=== PATIENT | female | born 1980 | race Caucasian/White ===

== ENCOUNTER 2018-10-28 11:59 | Emergency (ER) | payer OTHER, MEDICAID, SELFPAY ==
[2018-10-28 12:03] VITALS: BP 146/80; PULSE 64; RESP 14; TEMP 36.7; O2SAT 100; BMI 22.4
--- NOTE | 2018-10-28 14:42 | ED_ITS ---
HPI - Back Pain/Injury <Shaina Shanks PA-C - Last Filed: 10/28/18 21:38> General Chief Complaint: Back Pain/Injury Stated Complaint: flu symptoms. Time Seen by Provider: 10/28/18 14:14 Source: patient Mode of arrival: ambulatory Limitations: no limitations History of Present Illness HPI Narrative: This 37-year-old female comes in due to increased back and arthritis pain after being out of her gabapentin since yesterday. 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 She states that she had been using a combination of 3-400 mg + 100 mg tablets. She was finding with being more active that 400 mg was not sufficiently effective, and did much better with taking 600 mg per dose. She states that her PCP is in [place], and she is due for a visit but not able to get in the right away to get refills. She denies any new injury or acute changes such as new paresthesia or weakness in her extremities or urinary or bowel changes. She states that her menses also restarted after 10 months and she thinks this contributes somewhat to her pain due to cramps, but she does not have any new urinary symptoms or other complaints today, just hoping to review medication and get a refill until she can see her PCP. She states that she is doing well, maintaining a full-time job and wants to be able to continue. She would like to be seen locally as she lives here now. She states that she has had no sedation or other side effects with taking 600 mg of gabapentin per dose Related Data Home Medications Medication Instructions Recorded Confirmed atenolol 50 mg PO BID 10/28/18 10/28/18 buprenorphine-naloxone [Suboxone] 1.5 film SUBLINGUAL DAILY 10/28/18 10/28/18 omeprazole 20 mg PO DAILY 10/28/18 10/28/18 sertraline 25 mg PO DAILY 10/28/18 10/28/18 Previous Rx's Medication Instructions Recorded gabapentin 600 mg PO TID #90 tab 10/28/18 Allergies Allergy/AdvReac Type Severity Reaction Status Date / Time No Known Drug Allergies Allergy Verified 10/28/18 12:07 Review of Systems <RICO Richter Last Filed: 10/28/18 21:38> Review of Systems All systems reviewed & are unremarkable except as noted in HPI and below PFSH <RICO Richter Last Filed: 10/28/18 21:38> Comment: No EtOH, some THC Exam <RICO Richter Last Filed: 10/28/18 21:38> Narrative Exam Narrative: GENERAL APPEARANCE: Patient sitting comfortably, in no distress. LUNGS: Clear to auscultation bilaterally. HEART: Rate and rhythm regular without murmur, normal S1 and S2, no S3 or S4. NEUROLOGIC: Alert, oriented, normal speech, gait and coordination Initial Vital Signs Initial Vital Signs: Vital Signs Temperature 98.0 F 10/28/18 12:03 Pulse Rate 64 10/28/18 12:03 Respiratory Rate 14 10/28/18 12:03 Blood Pressure 146/80 H 10/28/18 12:03 Pulse Oximetry 100 10/28/18 12:03 <Soraida Guerrero DO - Last Filed: 10/29/18 17:01> Initial Vital Signs Initial Vital Signs: Vital Signs Temperature 98.0 F 10/28/18 12:03 Pulse Rate 64 10/28/18 12:03 Respiratory Rate 14 10/28/18 12:03 Blood Pressure 146/80 H 10/28/18 12:03 Pulse Oximetry 100 10/28/18 12:03 Course <RICO Richter Last Filed: 10/28/18 21:38> Vital Signs - 8 hr 10/28/18 14:59 Pulse Rate 56 L Respiratory Rate 15 Blood Pressure 141/78 H Pulse Oximetry 97 <DO Braulio Black Last Filed: 10/29/18 17:01> Vital Signs - 8 hr 10/28/18 14:59 Pulse Rate 56 L Respiratory Rate 15 Blood Pressure 141/78 H Pulse Oximetry 97 MDM - Back Pain/Injury <RICO Richter Last Filed: 10/28/18 21:38> Lab Data Point of Care Testing Test Results Negative Urine Dip Bedside Urine Glucose Negative Bedside Urine Bilirubin - Negative Bedside Urine Ketone - Negative Urine Specific [place] 1.010 Bedside Urine Occult Blood +++ Bedside Urine pH 6.0 Bedside Urine Protein - Negative Bedside Urine Urobilinogen - Negative Bedside Urine Nitrite - Negative Bedside Urine Leukocytes - Negative Esterase <Soraida Guerrero DO - Last Filed: 10/29/18 17:01> Lab Data Point of Care Testing Test Results Negative Urine Dip Bedside Urine Glucose Negative Bedside Urine Bilirubin - Negative Bedside Urine Ketone - Negative Urine Specific [place] 1.010 Bedside Urine Occult Blood +++ Bedside Urine pH 6.0 Bedside Urine Protein - Negative Bedside Urine Urobilinogen - Negative Bedside Urine Nitrite - Negative Bedside Urine Leukocytes - Negative Esterase Discharge Plan Departure Patient Disposition: Home Clinical Impression: Chronic lumbar pain, Encounter for medication refill Discharge Date/Time: 10/28/18 15:00 Interventions: ED Discharge Assessment Last Done: 10/28/18 14:59 Instructions: Managing Chronic Low Back Pain, DI for Low Back Pain Activity Restrictions/Additional Instructions: Please continue trying to increase your activity level as you have been, as this may help your back pain in the long run. Since you have found that 600 mg of gabapentin helps your pain most effectively, I have filled that dose for you at [facility]. Please return if you have any new or acutely worsening symptoms, but otherwise follow up with your PCP at [facility] for now in the next week or so to review your progress on that dose and get additional refills. If you are hoping to see a provider closer to home, please contact your insurance to find out which local providers are currently accepting it for new patients. congratulations on 18 months of successful sobriety! Prescriptions: New gabapentin 600 mg tablet 600 mg PO TID Qty: 90 RF: 0 Discontinued gabapentin 100 mg capsule 100 mg PO BID RF: 0 gabapentin 400 mg capsule 400 mg PO TID RF: 0 No Action sertraline 25 mg tablet 25 mg PO DAILY RF: 0 atenolol 50 mg tablet 50 mg PO BID RF: 0 omeprazole 20 mg capsule,delayed release(DR/EC) 20 mg PO DAILY RF: 0 buprenorphine-naloxone [Suboxone] 8-2 mg film 1.5 film Sublingual DAILY RF: 0 Referrals: Rosalba Silva [Non-Staff] - <Soraida Guerrero DO - Last Filed: 10/29/18 17:01> Cosign ED Attending Cosignature Attestation: I was immediately available in the department for consultation. This documentation has been reviewed and I agree with assessment and plan. Supervised by Soraida Guerrero, DO
[2018-10-28 14:59] VITALS: BP 141/78; PULSE 56; RESP 15; O2SAT 97
== END 2018-10-28 15:00 | disposition home or self-care (01) ==
PROVIDERS: Emergency Provider Internal Medicine
DX: M54.5 Low back pain (principal); Z76.0 Encounter for issue of repeat prescription
CPT/HCPCS: 81003; 81025; 99282

== ENCOUNTER 2019-07-14 19:28 | Emergency (ER) | payer OTHER, MEDICAID, SELFPAY ==
[2019-07-14 19:40] VITALS: BP 149/98; PULSE 96; RESP 18; TEMP 37.7; O2SAT 97; BMI 23.3
--- NOTE | 2019-07-14 20:04 | PC.NURSE ---
Pt reports running out of her antidepressant five days ago. Jonny Mccullough unable to fill script due to provider on vavcation. Pt having symptoms related to anxiety causing racing heart. She also reports feeling tearful with crying spells from not having antidepressant medication.
--- NOTE | 2019-07-14 20:50 | ED_ITS ---
HPI - Arrhythmia/Palpitations General Chief Complaint: Arrhythmia/Palpitations Stated Complaint: heart palpitations Time Seen by Provider: 07/14/19 20:32 Source: patient Mode of arrival: Ambulatory Limitations: no limitations History of Present Illness HPI narrative: Patient is a 38-year-old female here for evaluation of anxiety and palpitations. She has been on Remeron prescribed by her primary provider. States she ran out earlier this week. She states that she did not think it was helping her however since she has been off the medication she has had much more issues with anxiety and depression and problems sleeping and palpitations. She states that the medication must be helping her because now things are worse. She tried to contact her primary doctor however was told that she needed 48 hours in order for them to be able to refill her prescription. She then was told that her primary provider went on vacation. She is here for a medication refill. Related Data Home Medications Medication Instructions Recorded Confirmed atenolol 50 mg PO BID 10/28/18 10/28/18 buprenorphine-naloxone [Suboxone] 1.5 film SUBLINGUAL DAILY 10/28/18 10/28/18 omeprazole 20 mg PO DAILY 10/28/18 10/28/18 sertraline 25 mg PO DAILY 10/28/18 10/28/18 Previous Rx's Medication Instructions Recorded gabapentin 600 mg PO TID #90 tab 10/28/18 mirtazapine 30 mg PO BEDTIME #7 tab 07/14/19 Allergies Allergy/AdvReac Type Severity Reaction Status Date / Time No Known Drug Allergies Allergy Verified 07/14/19 19:45 Review of Systems Constitutional Constitutional: Denies fever(s) and Denies headache(s) ENT Ears, Nose, Mouth, and Throat: Denies headache(s) Cardiovascular Cardiovascular: Denies chest pain, Reports rapid heart rate, Reports palpitations and Denies dyspnea Respiratory Respiratory: Denies dyspnea Gastrointestinal Gastrointestinal: Denies abdominal pain, Denies nausea and Denies vomiting Musculoskeletal Musculoskeletal: Denies myalgias and Denies arthralgias Integumentary/Breasts Skin/Breast: Denies rash Neurologic Neurologic: Denies confusion, Denies headache(s) and Reports paresthesias Psychiatric Psychiatric: Reports anxiety, Denies confusion, Reports depression and Reports panic attacks Endocrine Endocrine: Reports palpitations Hematologic/Lymphatic Hematologic/Lymphatic: Denies easy bleeding and Denies easy bruising [facility] Medical History Chronic lower back pain (Chronic) 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) Tarlov cysts (Chronic) Surgical History (Updated 10/28/18 @ 14:41 by Shaina Shanks PA-C) History of elective (Resolved) Family History (Updated 10/28/18 @ 14:42 by Shaina Shanks PA-C) Other Family history non-contributory Social History Smoking Status: Current every day smoker Family History (Updated 10/28/18 @ 14:42 by Shaina Shanks PA-C) Other Family history non-contributory Social History Smoking Status: Current every day smoker Exam Initial Vital Signs Initial Vital Signs: Vital Signs Temperature 99.9 F H 07/14/19 19:40 Pulse Rate 96 H 07/14/19 19:40 Respiratory Rate 18 07/14/19 19:40 Blood Pressure 149/98 H 07/14/19 19:40 Pulse Oximetry 97 07/14/19 19:40 Const General: cooperative, comfortable and well developed Orientation: alert, awake and oriented x3 HENMT Head: normal to inspection and normocephalic Resp Effort & Inspection: normal respiratory effort Auscultation: clear to auscultation bilaterally Cardio Rate: regular rate Rhythm: regular rhythm Pulses: radial pulses present Skin Lesions: no lesions Rashes: no rashes Neuro General: alert and awake Speech: speech normal Gait: normal gait Motor: muscle tone normal throughout Extrem General: normal to inspection and capillary refill normal Psych Appearance: grossly normal and well kempt Course Orders Ordered: Discontinued Medications Lorazepam (Ativan) 1 mg PO NOW ONE Stop: 07/14/19 20:51 Last Admin: 07/14/19 20:55 Dose: 1 mg Documented by: ELA Vital Signs Vital signs: Vital Signs - 8 hr 07/14/19 21:22 Pulse Rate 81 Respiratory Rate 18 Blood Pressure 131/82 Pulse Oximetry 100 MDM - Arrhythmia/Palpitations ECG Data Attestation: I personally reviewed and interpreted this ECG as follows: Prior ECG tracings: not available for review Interpretation: Sinus rhythm Ventricular rate 82 Normal QRS Normal QTC No ST T wave changes MDM Narrative Medical decision making narrative: Patient states that her symptoms are most likely related to the fact that she has not been on the medication for the past week. I will prescribe a short course of this medication for her until she can have her refilled by her primary provider. She agrees that all of her symptoms are related to the anxiety. Will hold on further workup for now. Patient was given return precautions and follow-up instructions. She expressed understanding and agreement plan. Discharge Plan Departure Patient Disposition: Home Clinical Impression: Anxiety, Palpitations, Medication refill Discharge Date/Time: 07/14/19 21:23 Instructions: DI for Anxiety -- Adult, DI for Palpitations Activity Restrictions/Additional Instructions: On Wednesday you need to contact your primary provider for a long-term refill of your medications. You can return to the emergency department for any new or worsening symptoms Prescriptions: New mirtazapine 30 mg tablet 30 mg PO BEDTIME Qty: 7 RF: 0 No Action sertraline 25 mg tablet 25 mg PO DAILY RF: 0 atenolol 50 mg tablet 50 mg PO BID RF: 0 omeprazole 20 mg capsule,delayed release(DR/EC) 20 mg PO DAILY RF: 0 buprenorphine-naloxone [Suboxone] 8-2 mg film 1.5 film Sublingual DAILY RF: 0 gabapentin 600 mg tablet 600 mg PO TID Qty: 90 RF: 0
[2019-07-14] MEDS: LORazepam 0.5 MG TABLET 1 MG PO (20:55)
[2019-07-14 21:22] VITALS: BP 131/82; PULSE 81; RESP 18; O2SAT 100
== END 2019-07-14 21:23 | disposition home or self-care (01) ==
PROVIDERS: Emergency Provider Emergency Medicine
DX: F41.9 Anxiety disorder, unspecified (principal); R00.2 Palpitations; Z76.0 Encounter for issue of repeat prescription
CPT/HCPCS: 93005; 99282; 99283